=== PATIENT | female | born 1975 | race Caucasian/White ===

== ENCOUNTER 2019-11-27 04:24 | Emergency (ER) | payer SELFPAY ==
[~2019-11-27] VITALS: Ht 157.5 cm; Wt 91.0 kg
[2019-11-27] MEDS ORDERED: ACETAMINOPHEN 325MG TABLET PO STA (05:19)
[2019-11-27] MEDS ORDERED: BACITRACIN ZINC OINT UDPKT TOP ONE (05:30)
[2019-11-27] MEDS ORDERED: LIDOCAINE 1%/EPI 1:100,000 10 ML VIAL IJ ONE (05:30)
[2019-11-27] MEDS ORDERED: LIDOCAINE HCL/EPINEPHRINE 1%-EPI 1:100,000 20 ML VIAL INFIL NR (05:30)
[2019-11-27 06:53] VITALS: BP 135/75
== END 2019-11-27 06:57 | disposition home or self-care (01) ==
LOC: ER 04:24
DX: S01.01XA Laceration without foreign body of scalp, initial encounter (principal); S00.03XA Contusion of scalp, initial encounter; Z88.5 Allergy status to narcotic agent; X58.XXXA Exposure to other specified factors, initial encounter; Y93.83 Activity, rough housing and horseplay; Y92.012 Bathroom of single-family (private) house as the place of occurrence of the external cause
CPT/HCPCS: 70450; 99284; J3490

== ENCOUNTER 2019-12-08 04:16 | Emergency (ER) | payer SELFPAY ==
[~2019-12-08] VITALS: Ht 157.5 cm; Wt 95.0 kg
[2019-12-08 04:25] VITALS: BP 152/91
== END 2019-12-08 04:43 | disposition home or self-care (01) ==
LOC: ER 04:40
DX: Z48.02 Encounter for removal of sutures (principal)
CPT/HCPCS: 99281